=== PATIENT | female | born 1990 | race Caucasian/White ===

== ENCOUNTER 2017-11-22 19:04 | Emergency (ER) | payer BC | END 2017-11-22 21:16 | disposition home or self-care (01) | LOC: E/R 21:16 | DX: H65.01 Acute serous otitis media, right ear (principal); J06.9 Acute upper respiratory infection, unspecified | CPT/HCPCS: 99284 ==

== ENCOUNTER 2019-04-24 21:02 | Emergency (ER) | payer BC ==
[2019-04-25 00:18] LABS: URINE BLOOD (Dip) POC Negative (NEGATIVE); URINE GLUCOSE (Dip) POC Negative (NEGATIVE); URINE KETONES (Dip) POC 1+ (NEGATIVE); URINE LEUKOCYTE EST (Dip) POC 1+ (NEGATIVE); URINE NITRITE (Dip) POC Negative (NEGATIVE); URINE TOTAL PROTEIN POC Negative (NEGATIVE)
[2019-04-25] MEDS: HYDROCODONE/APAP (5/325) TAB PO (00:49)
[2019-04-25] MEDS: IBUPROFEN 600 MG TAB PO (00:49)
== END 2019-04-25 01:57 | disposition home or self-care (01) ==
LOC: FTE 21:02
DX: M54.5 Low back pain (principal); M54.2 Cervicalgia
CPT/HCPCS: 72040; 72072; 72100; 81003; 81025; 99283-25